=== PATIENT | female | born 1960 | race Caucasian/White ===

== ENCOUNTER 2018-10-12 08:07 | Day surgery (SDC) | payer OTHER ==
[~2018-10-12 08:07] MED LIST: Lactated Ringers 1,000 ML IV SCH
--- NOTE | 2018-10-12 08:20 | HP ---
DATE OF SURGERY: 10/12/2018 HISTORY OF PRESENT ILLNESS: The patient is a 58 year-old with a lot of gas and some blood in the stool. The patient has some internal hemorrhoids. No change in bowel movements. Family history negative for colon cancer. She is in need of screening colonoscopy and also internal hemorrhoid banding if indicating at the time. PAST MEDICAL HISTORY: Hypothyroidism. She did have prior history of tubular adenoma in the sigmoid in the past on endoscopy a few years ago. She is in need of follow up screening colonoscopy. PAST SURGICAL HISTORY: Tonsillectomy. MEDICATIONS: Thyroid pill. ALLERGIES: NKDA. FAMILY HISTORY: Heart disease. Negative for colon cancer. SOCIAL HISTORY: No smoking or alcohol abuse. REVIEW OF SYSTEMS: Fourteen systems reviewed per admission assessment. No chest pain or palpitations other systems negative or noncontributory as above and per preadmission questionnaire. PHYSICAL EXAMINATION: GENERAL: No acute distress. HEENT: Sclerae nonicteric. NECK: No JVD. CHEST: Equal excursion, nonlabored breathing. CVS: Regular rate and rhythm. ABDOMEN: Soft. No peritoneal signs. EXTREMITIES: No significant edema. NEURO: Alert, oriented, moving extremities symmetrically. No gross motor deficits noted. RECTAL: Deferred timed to endoscopy exam. IMPRESSION: History of polyps. She is in need of follow up screening colonoscopy as well as she has occasional rectal bleeding that she feels is related to internal hemorrhoid issue. She is interested if indicated at the time if possible for internal hemorrhoid banding. She was shown the risk sheet and explained the procedure in detail including bleeding or infection, risk of bowel injury or perforation possibly requiring open procedure, risk of ongoing morbidity, risk of missed or nondiagnosis or incomplete exam possibly requiring barium enema, other studies or procedures, general risk of anesthesia or sedation, risk of bowel prep regarding hemorrhoid banding, possibility the hemorrhoids may not be prominent enough to warrant banding. If they are and banding accomplished general risk of bleeding or infection, remote risk of major infection possibly requiring major procedure. There is also understanding of possibility should banding improve the situation there is a chance of progression of hemorrhoid disease that might require other treatments down the road. She understands and agrees to the planned procedure, will proceed with follow up screening colonoscopy as well as possible internal hemorrhoid banding as an outpatient.
[2018-10-12] MEDS ORDERED: Lactated Ringers 1,000 ML IV ONE ×2 (08:29→10:41)
[2018-10-12] MEDS ORDERED: DIPRIVAN 200 MG/20 ML IV ONE ×2 (10:14→10:29)
[2018-10-12 11:25] VITALS: O2SAT 100
[2018-10-12 11:52] VITALS: BP 135/77; PULSE 60
--- NOTE | 2018-10-12 15:36 | OP ---
SURGERY DATE/TIME: 10/12/2018 1016 PREOPERATIVE DIAGNOSIS: History of polyps, history of some internal and external hemorrhoids, occasional bleeding. POSTOPERATIVE DIAGNOSES: 1) Very tortuous colon, fair bowel prep. 2) Small raised lesion sigmoid colon. 3) Few diverticula. 4) Grade 2 to 3 internal and external hemorrhoids. PROCEDURES: 1) Colonoscopy to terminal ileum. 2) Retrograde Ileoscopy. 3) Hot biopsy sigmoid colon raised lesion versus early polyp. 4) Internal hemorrhoid banding x3 columns. SURGEON: Dr. Dereck Dave. CERTIFIED PERSONAL FINANCE COUNSELOR: Otilio Crespo M.D. - Medical Student III. ANESTHESIA: MAC. ESTIMATED BLOOD LOSS: Minimal. INDICATIONS: As noted above. Risks and benefits explained in detail but not limited to and consent obtained. DESCRIPTION OF PROCEDURE AND FINDINGS: The patient is taken to the operating room. MAC anesthesia introduced. After official time out and no disagreement with planned procedure, digital rectal exam did not reveal any rectal masses. She did have some internal and external hemorrhoids. Video colonoscope inserted and passed up through the tortuous sigmoid, descending, transverse and ascending colon very tortuous particularly in the left part of the colon. The scope was able to be navigated through here with a couple of staff members putting external pressure and positioned on her back. The scope was able to be passed around the ascending colon to the cecum up to the terminal ileum. Retrograde ileoscopy performed and grossly unremarkable. The scope slowly and carefully withdrawn. There were no signs of any large polyps, masses or obstructing lesions. She had a few diverticula and small raised lesion versus hyperplastic lesion versus hyperplasia in the mucosa in the sigmoid colon removed with hot biopsy forceps with brief bursts of cautery. Otherwise she had internal and external hemorrhoids. She had some increased symptoms from that and interested in hemorrhoid banding. The scope was withdrawn. Overall withdrawal time was about 10 minutes. The scope is withdrawn at this point. Remaining in the lateral position with brighter light, half-beth retractor carefully inserted. It was felt her inflamed internal hemorrhoids warranted trial of banding starting first at the left lateral. Suction sweatband drummer used to grasp the top edge of the hemorrhoid acquiring a feeding arteriole. Suction sweatband drummer easily fired with good tuft of tissue noted. This is again repeated in the right posterior position with a good tuft of tissue when the band fired the top edge internal hemorrhoid and again repeated the third time in the laying anterior position with nice tuft of tissue top edge of internal hemorrhoid. The patient tolerated the procedure well. There were no immediate complications. Findings discussed with the family out in the waiting area.
== END 2018-10-12 11:50 | disposition home or self-care (01) ==
LOC: SDC 08:07
PROVIDERS: ATTEND Surgery
DX: Z12.11 Encounter for screening for malignant neoplasm of colon (principal); K57.30 Diverticulosis of large intestine without perforation or abscess without bleeding; K64.4 Residual hemorrhoidal skin tags; K64.8 Other hemorrhoids; K63.9 Disease of intestine, unspecified; Z86.010 Personal history of colon polyps; E03.9 Hypothyroidism, unspecified
CPT/HCPCS: 88305; J2704

== ENCOUNTER 2022-08-05 09:31 | Day surgery (SDC) | payer OTHER ==
--- NOTE | 2022-08-05 08:57 | HP ---
DATE OF SURGERY: 08/05/2022 HISTORY OF PRESENT ILLNESS: The patient is a 62-year-old with history of polyps in the past. No bloody stools. No change in bowel movements. Increased aches when she has a bowel movement. No new abdominal pain. Family history negative for colon cancer. PAST MEDICAL HISTORY: Osteoarthritis. Chronic obstructive pulmonary disease. She wears corrective lenses. Hypothyroidism. PAST SURGICAL HISTORY: Tonsillectomy. Hemorrhoidectomy. Colonoscopy. MEDICATIONS: She takes some levothyroxine for hypothyroidism. ALLERGIES: NKDA. FAMILY HISTORY: Heart disease. Negative for colon cancer. SOCIAL HISTORY: No smoking. Occasional alcohol use. REVIEW OF SYSTEMS: Fourteen systems reviewed. No chest pain or palpitations. Other systems negative or noncontributory as above and per preadmission questionnaire. PHYSICAL EXAMINATION: Height 5'5". BMI 20.8. GENERAL: No acute distress. HEENT: Sclerae nonicteric. EOMI. Oropharynx mucous membranes moist. NECK: No JVD. CHEST: Equal excursion, nonlabored breathing. CVS: Regular rate and rhythm. ABDOMEN: Soft. BACK: Small lipoma. EXTREMITIES: No significant edema. NEURO: Alert, oriented, moving extremities symmetrically. RECTAL: Deferred timed to endoscopy exam. PSYCH: Appropriate mood and affect. SKIN: Dry. IMPRESSION: She is in need of follow up screening colonoscopy with history of polyps in the past. I feel patient is a candidate. Shown the risk sheet, explained the procedure in detail including but not limited to risk of bleeding or infection, risk of bowel injury or perforation, risk of missed or nondiagnosis or incomplete exam possibly requiring barium enema, other studies or procedures, general risk of anesthesia or sedation, risk of bowel prep but not limited to, consent obtained. Will proceed with follow up outpatient screening colonoscopy.
[2022-08-05] MEDS ORDERED: Lactated Ringers 1,000 ML IV SCH (10:00)
[2022-08-05] MEDS ORDERED: Lactated Ringers 1,000 ML IV ONE (10:07)
[2022-08-05] MEDS ORDERED: Versed 2 MG/2 ML Injection ONE (12:03)
[2022-08-05] MEDS ORDERED: DIPRIVAN 200 MG/20 ML IV ONE ×2 (12:03→12:13)
[2022-08-05 13:23] VITALS: BP 136/82; PULSE 64; O2SAT 95
--- NOTE | 2022-08-06 10:39 | OP ---
SURGERY DATE/TIME: 08/05/2022 1203 PREOPERATIVE DIAGNOSIS: Need for screening colonoscopy, prior history of polyps. POSTOPERATIVE DIAGNOSES: 1) ASA Class II. 2) Good bowel prep. 3) Few scattered diverticula. 4) Small polyps. PROCEDURES: 1) Colonoscopy to cecum. 2) Hot biopsy polypectomy small ascending colon polyp. 3) Hot biopsy polypectomy small transverse colon polyp. 4) Hot biopsy polypectomy small sigmoid colon polyps x2. 5) Hot biopsy polypectomy small rectal polyps x3. SURGEON: Dr. Dereck Dave. ANESTHESIA: MAC. ESTIMATED BLOOD LOSS: Minimal. INDICATIONS: As noted above. Risks and benefits explained in detail but not limited to and consent obtained. DESCRIPTION OF PROCEDURE AND FINDINGS: The patient is taken to the endoscopy room. MAC anesthesia induced. After official time out and no disagreement with planned procedure, digital rectal exam did not reveal any rectal masses. Video colonoscope inserted and passed up through the somewhat tortuous sigmoid, descending, transverse and ascending colon. With the external pressure the scope was able to be passed around to the cecum. Appendiceal orifice and valve well visualized and photo documented. Prep overall was good. There was a little bit of liquidy stool but overall good prep. The scope is carefully withdrawn over the next eleven minutes. Small polyps ascending colon, transverse colon, sigmoid colon x2 and rectum x3 small early polyps versus hyperplastic lesion removed with hot biopsy polypectomy. Good hemostasis was noted. The patient had a few scattered diverticula. No signs of any large polyps, masses or any other obstructing lesions. The scope is withdrawn. The patient tolerated the procedure well. There were no immediate complications. There was no family to discuss the findings with out in the waiting area.
== END 2022-08-05 13:25 | disposition home or self-care (01) ==
LOC: SDC 09:31
PROVIDERS: ATTEND Surgery
DX: Z12.11 Encounter for screening for malignant neoplasm of colon (principal); Z09 Encounter for follow-up examination after completed treatment for conditions other than malignant neoplasm; Z86.010 Personal history of colon polyps; K57.30 Diverticulosis of large intestine without perforation or abscess without bleeding; D12.7 Benign neoplasm of rectosigmoid junction; D12.2 Benign neoplasm of ascending colon; D12.5 Benign neoplasm of sigmoid colon; D12.3 Benign neoplasm of transverse colon
CPT/HCPCS: J2250; J2704

== ENCOUNTER 2022-11-13 20:02 | Emergency (ER) | payer OTHER ==
[2022-11-13 20:31] VITALS: BP 124/78; PULSE 75; RESP 18; TEMP 97.8; O2SAT 98
[2022-11-13] MEDS ORDERED: TORAdol 30 mg Injection IM ONE (21:08)
--- NOTE | 2022-11-13 21:09 | ERPHSYRPT ---
- History of Present Illness Time Seen by Provider: 11/13/22 20:58 Source: patient Exam Limitations: no limitations Patient Subjective Stated Complaint: pt states that she was playing with her dog when her dog tripped her Triage Nursing Assessment: pt ambulated into the er; pt is axo x4; c/o rt knee pain; no bruising, swelling, or deformity present to rt knee; strong rt pedal pulse; strong rt popiteal pulse; good cap refill to RLE; no respiratory distress present; skin PDW; vital wnl Physician History: Patient is a 62-year-old female presents to our emergency department for evaluation of pain to her right knee. Patient states she was playing with her dog when she tripped and fell. Patient now has knee pain. Injury occurred just prior to arrival. Pain described as an ache that is localized. No radiation. Pain worse with movement and palpation. Pain improved with rest. Patient voices no other complaints or concerns at this time. No BHT or LOC. No neck pain. Cervical spine cleared clinically. Portions of this note were created with voice recognition technology. There may be grammatical, spelling, punctuation or sound alike errors Method of Injury: fell Occurred: just prior to arrival Quality: constant Severity of Pain-Max: moderate Severity of Pain-Current: mild Lower Extremities Pain: knee: right Modifying Factors: Improves With: movement Associated Symptoms: none Allergies/Adverse Reactions: No Known Drug Allergies Allergy (Verified 11/13/22 20:19) Home Medications: Levothyroxine Sodium 88 Mcg [Synthroid 88 Mcg] 100 mcg PO DAILY 06/19/15 [History] Hx Tetanus, Diphtheria Vaccination/Date Given: Yes Hx Influenza Vaccination/Date Given: No Hx Pneumococcal Vaccination/Date Given: No Immunizations Up to Date: No Travel Risk - International Travel Have you traveled outside of the country in past 3 weeks: No - Coronavirus Screening Are you exhibiting any of the following symptoms?: No Close contact with a COVID-19 positive Pt in past 14-21 Days: No - Vaccine Status Have you recieved a Covid-19 vaccination: Yes Sole Rounding Machine Operator: Kwanji - Review of Systems Constitutional: No Symptoms, No Fever, No Chills Eyes: No Symptoms Ears, Nose, & Throat: No Symptoms Respiratory: No Symptoms, No Cough, No Dyspnea Cardiac: No Symptoms, No Chest Pain, No Edema, No Syncope Abdominal/Gastrointestinal: No Symptoms, No Abdominal Pain, No Nausea, No Vomiting, No Diarrhea Genitourinary Symptoms: No Symptoms, No Dysuria Musculoskeletal: No Symptoms, No Back Pain, No Neck Pain Skin: No Symptoms, No Rash Neurological: No Symptoms, No Dizziness, No Focal Weakness, No Sensory Changes Psychological: No Symptoms Endocrine: No Symptoms Hematologic/Lymphatic: No Symptoms Immunological/Allergic: No Symptoms All Other Systems: Reviewed and Negative - Past Medical History Pertinent Past Medical History: Yes Neurological History: No Pertinent History ENT History: No Pertinent History Cardiac History: No Pertinent History Respiratory History: No Pertinent History Endocrine Medical History: Hypothyroidism Musculoskeletal History: No Pertinent History GI Medical History: No Pertinent History History: No Pertinent History Psycho-Social History: No Pertinent History Female Reproductive Disorders: No Pertinent History Other Medical History: Hypothyroidism - Past Surgical History Past Surgical History: Yes Neuro Surgical History: No Pertinent History Cardiac: No Pertinent History Respiratory: No Pertinent History Gastrointestinal: Hemorrhoidectomy Genitourinary: No Pertinent History Musculoskeletal: No Pertinent History Female Surgical History: No Pertinent History Other Surgical History: tonsils out - Social History Smoking Status: Former smoker Exposure to second hand smoke: Yes Drug Use: none Patient Lives Alone: No - Nursing Vital Signs Nursing Vital Signs: Initial Vital Signs Temperature 97.8 F 11/13/22 20:21 Pulse Rate 75 11/13/22 20:21 Respiratory Rate 18 11/13/22 20:21 Blood Pressure 124/78 11/13/22 20:21 O2 Sat by Pulse Oximetry 98 11/13/22 20:21 Pain Scale Pain Intensity 3 - Physical Exam General Appearance: alert Neck Exam: full range of motion Cardiovascular/Respiratory Exam: normal breath sounds, regular rate/rhythm, no respiratory distress Gastrointestinal/Abdominal Exam: non-tender Back Exam: normal inspection, No vertebral tenderness Hips Exam: bilateral: non-tender, normal inspection, normal range of motion, no evidence of injury Legs Exam: bilateral leg: non-tender, normal inspection, normal range of motion, no evidence of injury Knees Exam: right knee: other (Tenderness to palpation mostly at the posterior aspect of her right knee. Overlying soft tissue intact. Knee extensor mechanism intact. All ligament are stable to varus valgus stress/negative anterior posterior drawer test), left knee: non-tender, normal inspection, normal range of motion, no evidence of injury Ankle Exam: bilateral ankle: non-tender, normal inspection, normal range of motion, no evidence of injury Foot Exam: bilateral foot: non-tender, normal inspection, normal range of motion, no evidence of injury Neuro/Tendon Exam: normal sensation, normal motor functions Mental Status Exam: alert, oriented x 3, cooperative Skin Exam: normal color, warm, dry SpO2 Interpretation: normal SpO2: 98 O2 Delivery: Room Air - Course Nursing assessment & vital signs reviewed: Yes - Radiology Exams Knee X-ray Interpretation: Interpreted by me (No fracture dislocations. No soft tissue abnormalities) Ordered Tests: Active Orders 24 hr Category Date Time Status KNEE (3 VIEWS) Stat Exams 11/13/22 20:20 Taken - Progress Progress: improved Progress Note: Patient is a 62-year-old female presents to our ED for evaluation of right knee pain. Patient fell while playing with her dog. Patient fell backwards and experienced pain to the posterior aspect of her right knee. Physical exam reveals tenderness to the posterior aspect of the right knee. Otherwise negative exam. All knee ligaments are stable. X-ray negative for fracture dislocation. Patient received IM Toradol. A prescription for Toradol was forwarded to patient's pharmacy. Veto wrap applied. Bilateral x-ray crutches provided. Referral to orthopedic clinic provided as well. Patient at bedside. They voiced no other complaints or concerns at this time. Portions of this note were created with voice recognition technology. There may be grammatical, spelling, punctuation or sound alike errors Complexity problem addressed is low acute uncomplicated COPA (number of complexity of problem addressed) Minimal, Straight forward, one self limited or minor problem Low. Acute uncomplicated stable +/- admission, Any acute or chronic illness, 2 or more self-limited or minor problems. Moderate. Acute, complicated or with systemic illness. Chronic illness with exacerbation, New diagnosis with uncertain prognosis. 2 or more chronic stable illnesses. High. Any severe exacerbation or threat to bodily function, Any treatment side effects Complex of data reviewed and analyzed is moderate. Dr. Meraz independently reviewed x-ray of the right knee. Clinical correlation made between findings and history and physical examination. No fracture dislocations observed. Risk complication and a risk morbidity/mortality of patient management is moderate. Patient received IM Toradol, bilateral axillary crutches, Veto wrap, prescription for Toradol forwarded to patient's pharmacy. Patient also received a referral to the orthopedic clinic. Vital stable. Time spent to discharge patient is approximately 15 minutes. Diagnosis is knee pain, knee strain as patient appears to have strained the musculature that crossed the posterior aspect of the involved knee.. Plan of care established for shared decision making. No social determinants of health present to impede follow-up. Portions of this note were created with voice recognition technology. There may be grammatical, spelling, punctuation or sound alike errors 11/13/22 21:15 11/13/22 21:18 Counseled pt/family regarding: diagnosis, need for follow-up, rad results - Departure Departure Disposition: Home Clinical Impression: Fall, Knee sprain, Knee strain Condition: Stable Critical Care Time: No Referrals: TED RODRÍGUEZ FNP [Primary Care Provider] - Follow up/PCP as directed Additional Instructions: Discharge/Care Plan ZAK ELIZABETH was seen on 11/13/22 in the Emergency Room. The patient was counseled regarding Diagnosis,Lab results, Imaging studies, need for follow up and when to return to the Emergency Room. Prescriptions given: Discharge Note I have spoken with the patient and/or caregivers. I have explained the patient's condition, diagnosis and treatment plan based on the information available to me at this time. I have answered the patient's and/or caregiver's questions and addressed any concerns. The patient and/or caregivers have as good understanding of the patient's diagnosis, condition and treatment plan as can be expected at this point. The vital signs have been stable. The patient's condition is stable and appropriate for discharge from the emergency department. The patient will pursue further outpatient evaluation with the primary care physician or other designated or consulting physician as outlined in the discharge instructions. The patient and/or caregivers are agreeable to this plan of care and follow-up instructions have been explained in detail. The patient and/or caregivers have received these instruction. The patient/and or caregivers are aware that any significant change in condition or worsening of symptoms should prompt an immediate return to this or the closest emergency department or call 911. Prescriptions: Ketorolac Trometh 10 mg Tab [TORAdol 10 MG TABLET] 10 mg PO TID 5 Days #15 tablet Outpatient Orders: Ortho Referral Time Frame: 1 Day, Facility: [facility]. Hosp, Location: ORTHO CLINIC
[2022-11-13] MEDS ORDERED: TORAdol 30 mg Injection ONE (21:14)
--- NOTE | 2022-11-14 08:40 | XRAY ---
Indication: Pain following fall. Twisting knee. Comparison: None 3 view right knee demonstrates tiny nonspecific effusion. No other bony, articular, or soft tissue abnormalities.
== END 2022-11-13 21:32 | disposition home or self-care (01) ==
LOC: ED 20:02
DX: S83.91XA Sprain of unspecified site of right knee, initial encounter (principal); W01.0XXA Fall on same level from slipping, tripping and stumbling without subsequent striking against object, initial encounter; Z79.899 Other long term (current) drug therapy
CPT/HCPCS: 73562; 96372; 99283; J1885

== ENCOUNTER 2024-03-23 16:39 | Emergency (ER) | payer MEDICARE, OTHER ==
[2024-03-23 18:45] VITALS: TEMP 97.8
--- NOTE | 2024-03-23 20:01 | ERPHSYRPT ---
- History of Present Illness Time Seen by Provider: 03/23/24 19:35 Historian: patient Exam Limitations: no limitations Patient Subjective Stated Complaint: C/O intermittent back pain inbetween shoulder bladers since Friday. Denies N/V. Denies injuries or falls. Triage Nursing Assessment: Patient ambulated back to ER without difficulties. She is alert and oriented. No SOB. Skin tone normal. Physician History: 64-year-old female presents to our ED for evaluation of pain in her upper back. Patient states symptoms started on Friday. Patient followed up with her primary care doctor today. Patient was advised to come to our ED for cardiac workup. Patient has a history of hypercholesterolemia. She states she is otherwise healthy. She is a non-smoker. No trauma no fever no cough. Symptoms are constant. Symptoms are mild to moderate in intensity. No specific worsening or improving factors. Patient otherwise feels well. She voices no other complaints or concerns at this time. Portions of this note were created with voice recognition technology. There may be grammatical, spelling, punctuation or sound alike errors Timing/Duration: day(s) (4 days) Activities at Onset: none Quality: aching Location: back Chest Pain Radiation: no radiation Severity of Pain-Max: moderate Severity of Pain-Current: mild Modifying Factors: Improves With: nothing Associated Symptoms: denies symptoms Nitro Today/Relief: no nitro taken today Aspirin Treatment Today: no aspirin today Allergies/Adverse Reactions: No Known Drug Allergies Allergy (Verified 03/23/24 18:35) Home Medications: Levothyroxine Sodium 112 Mcg [Synthroid 112 Mcg] 112 mcg PO DAILY 03/23/24 [History] Hx Tetanus, Diphtheria Vaccination/Date Given: Yes Hx Influenza Vaccination/Date Given: No Hx Pneumococcal Vaccination/Date Given: No Immunizations Up to Date: Yes Travel Risk - International Travel Have you traveled outside of the country in past 3 weeks: No - Emerging Infectious Disease Are you exhibiting symptoms associated with any current EIDs: No - Review of Systems Constitutional: No Symptoms, No Fever, No Chills Eyes: No Symptoms Ears, Nose, & Throat: No Symptoms Respiratory: No Symptoms, No Cough, No Dyspnea Cardiac: No Symptoms, No Chest Pain, No Edema, No Syncope Abdominal/Gastrointestinal: No Symptoms, No Abdominal Pain, No Nausea, No Vomiting, No Diarrhea Genitourinary Symptoms: No Symptoms, No Dysuria Musculoskeletal: No Symptoms, No Back Pain, No Neck Pain Skin: No Symptoms, No Rash Neurological: No Symptoms, No Dizziness, No Focal Weakness, No Sensory Changes Psychological: No Symptoms Endocrine: No Symptoms Hematologic/Lymphatic: No Symptoms Immunological/Allergic: No Symptoms All Other Systems: Reviewed and Negative - Past Medical History Pertinent Past Medical History: Yes Neurological History: No Pertinent History ENT History: No Pertinent History Cardiac History: No Pertinent History Respiratory History: No Pertinent History Endocrine Medical History: Hypothyroidism Musculoskeletal History: No Pertinent History GI Medical History: No Pertinent History History: No Pertinent History Psycho-Social History: No Pertinent History Female Reproductive Disorders: No Pertinent History Other Medical History: Hypothyroidism - Past Surgical History Past Surgical History: Yes Neuro Surgical History: No Pertinent History Cardiac: No Pertinent History Respiratory: No Pertinent History Gastrointestinal: Hemorrhoidectomy Genitourinary: No Pertinent History Musculoskeletal: No Pertinent History Female Surgical History: No Pertinent History Other Surgical History: tonsils out - Social History Smoking Status: Former smoker Exposure to second hand smoke: Yes Drug Use: none Patient Lives Alone: No - Social Determinants of Health Will the patient participate in the screening: Declined to provide - Nursing Vital Signs Nursing Vital Signs: Initial Vital Signs Temperature 97.8 F 03/23/24 18:38 Pulse Rate 64 03/23/24 18:38 Respiratory Rate 18 03/23/24 18:38 Blood Pressure 176/79 03/23/24 18:38 O2 Sat by Pulse Oximetry 99 03/23/24 18:38 Pain Scale Pain Intensity 0 - Physical Exam General Appearance: no apparent distress, alert Eye Exam: PERRL/EOMI, eyes nml inspection Ears, Nose, Throat Exam: normal ENT inspection, moist mucous membranes Neck Exam: normal inspection, full range of motion Respiratory Exam: normal breath sounds, lungs clear, airway intact, No respiratory distress Cardiovascular Exam: regular rate/rhythm, normal heart sounds, normal peripheral pulses Gastrointestinal/Abdomen Exam: soft, No tenderness, No mass Back Exam: normal inspection, No CVA tenderness, No vertebral tenderness Extremity Exam: normal inspection, normal range of motion Neurologic Exam: alert, oriented x 3, cooperative, normal mood/affect, sensation nml, No motor deficits Skin Exam: normal color, warm, dry Lymphatic Exam: No adenopathy SpO2 Interpretation: normal SpO2: 97 O2 Delivery: Room Air - Course Nursing assessment & vital signs reviewed: Yes EKG Interpreted by Me: RATE (72), Sinus Rhythm, NORMAL AXIS, NORMAL INTERVALS, NORMAL QRS Ordered Tests: Active Orders 24 hr Category Date Time Status AMA [Release AMA] OM.NOW Care 03/23/24 22:27 Completed Field Sales Executive STAT Care 03/23/24 19:54 Completed EKG-ER Only STAT Care 03/23/24 19:54 Completed IV Insertion STAT Care 03/23/24 19:51 Completed Pulse Oximetry (ED) STAT Care 03/23/24 19:54 Completed CBC W DIFF Stat Lab 03/23/24 20:07 Completed CMP Stat Lab 03/23/24 20:07 Completed CULTURE,URINE Stat Lab 03/23/24 20:30 Received D-DIMER QUANTITATIVE Stat Lab 03/23/24 20:07 Completed NT PRO BNPII Stat Lab 03/23/24 20:07 Completed TROPONIN Q4H Lab 03/23/24 20:07 Completed TROPONIN Q4H Lab 03/23/24 22:30 Ordered UA W/RFX UR CULTURE Stat Lab 03/23/24 20:30 Completed Medication Summary Discontinued Medications Generic Name Dose Route Start Last Admin Trade Name Freq PRN Reason Stop Dose Admin Sodium Chloride 1,000 mls @ 250 mls/hr 03/23/24 20:00 03/23/24 20:31 Sodium Chloride 0.9% 1000 Ml IV 04/22/24 19:59 250 mls/hr .Q4H WILLIAM Administration Morphine Sulfate 4 mg 03/23/24 19:51 03/23/24 20:30 Morphine Sulfate 4 Mg/Ml Injection IV 03/23/24 19:52 4 mg STAT ONE Administration Nitrofurantoin Macrocrystals 100 mg 03/23/24 22:14 03/23/24 22:17 Nitrofurantoin Macro 100 Mg Capsule PO 03/23/24 22:15 100 mg STAT ONE Administration Nitrofurantoin Macrocrystals Confirm 03/23/24 22:17 Nitrofurantoin Macro 100 Mg Capsule Administered 03/23/24 22:18 Dose 100 mg .ROUTE .STK-MED ONE Ondansetron HCl 4 mg 03/23/24 19:51 03/23/24 20:32 Ondansetron Hcl 4 Mg/2 Ml Vial IV 03/23/24 19:52 4 mg STAT ONE Administration Lab/Rad Data: Laboratory Result Diagrams 03/23/24 20:07 03/23/24 20:07 Laboratory Results 03/23/24 03/23/24 03/23/24 Range/Units 20:30 20:07 20:07 WBC (3.98-10.04) x10^3/uL RBC (3.93-5.22) x10^6/uL Hgb (11.2-15.7) g/dL Hct (34.1-44.9) % MCV (79.4-94.8) fL MCH (25.6-32.2) pg MCHC (32.2-35.5) g/dL RDW (11.7-14.4) % Plt Count (182-369) x10^3/uL MPV (9.4-12.3) fL Gran % (34.0-71.1) % Immature Gran % (Auto) (0.001-0.429) % Nucleat RBC Rel Count (0.00-0.2) % Eos # (Auto) (0.04-0.36) x10^3/uL Immature Gran # (Auto) (0.001-0.031) x10^3u/L Absolute Lymphs (auto) (1.18-3.74) x10^3/uL Absolute Monos (auto) (0.24-0.86) x10^3/uL Absolute Nucleated RBC (0.00-0.012) x10^3u/L Lymphocytes % (19.3-51.7) % Monocytes % (4.7-12.5) % Eosinophils % (0.7-5.8) % Basophils % (0.1-1.2) % Absolute Granulocytes (1.56-6.13) x10^3/uL Basophils # (0.01-0.08) x10^3/uL D-Dimer < 0.19 (0.0-0.50) mg/L Sodium (135-145) mmol/L Potassium (3.5-5.1) mmol/L Chloride (98-107) mmol/L Carbon Dioxide (22-30) mmol/L Anion Gap (5-15) MEQ/L BUN (7-17) mg/dL Creatinine (0.52-1.04) mg/dL Estimated GFR ML/MIN Glucose (74-106) mg/dL Calcium (8.4-10.2) mg/dL Total Bilirubin (0.2-1.3) mg/dL AST (14-36) U/L ALT (0-35) U/L Alkaline Phosphatase (38-126) U/L Troponin I < 0.012 (0.000-0.033) ng/mL NT-Pro-B Natriuret Pep 37.8 (<300) pg/mL Serum Total Protein (6.3-8.2) g/dL Albumin (3.5-5.0) g/dL Urine Color Yellow (Yellow) Urine Appearance Clear (Clear) Urine pH 7.0 (4.6-8.0) Ur Specific [place] 1.010 (1.005-1.030) Urine Protein Negative (Negative) Urine Glucose (UA) Negative (Negative) mg/dL Urine Ketones Trace A (Negative) Urine Blood Trace (Negative) Urine Nitrite Negative (Negative) Urine Bilirubin Negative (Negative) Urine Urobilinogen 0.2 (0.2) mg/dL Ur Leukocyte Esterase Moderate A (Negative) U Hyaline Cast (Auto) NONE SEEN (0-2) /LPF Urine Microscopic RBC 3-5 (0-5) /HPF Urine Microscopic WBC 21-50 A (0-5) /HPF Ur Epithelial Cells None Seen (None Seen) /HPF Urine Bacteria None Seen (None Seen) /HPF Urine Culture Reflexed YES (NO) 03/23/24 03/23/24 Range/Units 20:07 20:07 WBC 7.5 (3.98-10.04) x10^3/uL RBC 3.88 L (3.93-5.22) x10^6/uL Hgb 12.1 (11.2-15.7) g/dL Hct 36.8 (34.1-44.9) % MCV 94.8 (79.4-94.8) fL MCH 31.2 (25.6-32.2) pg MCHC 32.9 (32.2-35.5) g/dL RDW 12.8 (11.7-14.4) % Plt Count 272 (182-369) x10^3/uL MPV 10.4 (9.4-12.3) fL Gran % 60.0 (34.0-71.1) % Immature Gran % (Auto) 0.3 (0.001-0.429) % Nucleat RBC Rel Count 0.0 (0.00-0.2) % Eos # (Auto) 0.13 (0.04-0.36) x10^3/uL Immature Gran # (Auto) 0.02 (0.001-0.031) x10^3u/L Absolute Lymphs (auto) 2.16 (1.18-3.74) x10^3/uL Absolute Monos (auto) 0.62 (0.24-0.86) x10^3/uL Absolute Nucleated RBC 0.00 (0.00-0.012) x10^3u/L Lymphocytes % 28.7 (19.3-51.7) % Monocytes % 8.2 (4.7-12.5) % Eosinophils % 1.7 (0.7-5.8) % Basophils % 1.1 (0.1-1.2) % Absolute Granulocytes 4.52 (1.56-6.13) x10^3/uL Basophils # 0.08 (0.01-0.08) x10^3/uL D-Dimer (0.0-0.50) mg/L Sodium 138 (135-145) mmol/L Potassium 3.8 (3.5-5.1) mmol/L Chloride 104 (98-107) mmol/L Carbon Dioxide 25 (22-30) mmol/L Anion Gap 13.0 (5-15) MEQ/L BUN 15 (7-17) mg/dL Creatinine 0.80 (0.52-1.04) mg/dL Estimated GFR 81.7 ML/MIN Glucose 102 (74-106) mg/dL Calcium 9.9 (8.4-10.2) mg/dL Total Bilirubin 0.30 (0.2-1.3) mg/dL AST 32 (14-36) U/L ALT 33 (0-35) U/L Alkaline Phosphatase 63 (38-126) U/L Troponin I (0.000-0.033) ng/mL NT-Pro-B Natriuret Pep (<300) pg/mL Serum Total Protein 7.0 (6.3-8.2) g/dL Albumin 4.7 (3.5-5.0) g/dL Urine Color (Yellow) Urine Appearance (Clear) Urine pH (4.6-8.0) Ur Specific [place] (1.005-1.030) Urine Protein (Negative) Urine Glucose (UA) (Negative) mg/dL Urine Ketones (Negative) Urine Blood (Negative) Urine Nitrite (Negative) Urine Bilirubin (Negative) Urine Urobilinogen (0.2) mg/dL Ur Leukocyte Esterase (Negative) U Hyaline Cast (Auto) (0-2) /LPF Urine Microscopic RBC (0-5) /HPF Urine Microscopic WBC (0-5) /HPF Ur Epithelial Cells (None Seen) /HPF Urine Bacteria (None Seen) /HPF Urine Culture Reflexed (NO) - Progress Progress: improved Air Movement: good Progress Note: 64-year-old female presents to our ED as a referral from her primary care doctor for evaluation of acute coronary syndrome. Patient has been having back pain. Physical exam essentially nonremarkable. Preliminary workup nonremarkable. D- dimer negative. Initial troponin negative. Chest x-ray ordered. Second Trope pending. UA significant for urinary tract infection. Patient received a dose of Macrobid in our ED. a prescription for Macrobid forwarded to patient's p harmacy. Patient could not stay for a second cardiac troponin. Patient left AMA before second troponin could be obtained and before chest x-ray could be completed.. Patient is of sound mind. Patient is appropriate to make informed and independent medical decisions. Patient understands that leaving AGAINST MEDICAL ADVICE can result in delayed diagnosis, increased risk of morbidity, mortality, short and long-term disability including . In spite of these risks, patient has decided to leave AGAINST MEDICAL ADVICE. Patient understands that she may return to our ED at any point if she reconsiders. Patient agrees to follow-up with her primary care doctor within 48 hours for reevaluation. Patient voices no other complaints or concerns at this time. We will release patient AGAINST MEDICAL ADVICE per their request. Complexity of problem addressed is moderate acute complicated no critical care time. Complexity of data reviewed and analyzed is moderate. Test ordered test reviewed results analyzed and correlated clinically with history and physical exam. Risk of complication and or risk of morbidity/mortality of patient management is moderate. A prescription for Macrobid forwarded to patient's pharmacy. Vital stable. Time spent to discharge patient is approximately 20 minutes. No social determinants of health present to impede follow-up. Portions of this note were created with voice recognition technology. There may be grammatical, spelling, punctuation or sound alike errors 03/23/24 22:29 03/23/24 22:41 Blood Culture(s) Obtained: No Antibiotics given: No Counseled pt/family regarding: lab results, diagnosis, need for follow-up - Departure Departure Disposition: Home Clinical Impression: UTI (urinary tract infection), Back pain Condition: Stable Critical Care Time: No Referrals: TED RODRÍGUEZ FNP [Primary Care Provider] - Follow up/PCP as directed Instructions: Low Back Pain (DC), Urinary tract infection - Discharge instructions Additional Instructions: Discharge/Care Plan CLARAZAK SAGE was seen on 03/23/24 in the Emergency Room. The patient was counseled regarding Diagnosis,Lab results, Imaging studies, need for follow up and when to return to the Emergency Room. Prescriptions given: Discharge Note I have spoken with the patient and/or caregivers. I have explained the patient's condition, diagnosis and treatment plan based on the information available to me at this time. I have answered the patient's and/or caregiver's questions and ad dressed any concerns. The patient and/or caregivers have as good understanding of the patient's diagnosis, condition and treatment plan as can be expected at this point. The vital signs have been stable. The patient's condition is stable and appropriate for discharge from the emergency department. The patient will pursue further outpatient evaluation with the primary care physician or other designated or consulting physician as outlined in the discharge instructions. The patient and/or caregivers are agreeable to this plan of care and follow-up instructions have been explained in detail. The patient and/or caregivers have received these instruction. The patient/and or caregivers are aware that any significant change in condition or worsening of symptoms should prompt an immediate return to this or the closest emergency department or call 911. Prescriptions: Nitrofurantoin Macro 100 mg [Macrobid 100MG Capsule] 100 mg PO BID 7 Days #14 cap
[2024-03-23 20:10] LABS: Absolute Neutrophil Ct (ANC) 4.52 x10^3/uL (1.56-6.13); BASOPHIL % 1.1 % (0.1-1.2); Basophil (Absolute #) 0.08 x10^3/uL (0.01-0.08); Eosinophil % 1.7 % (0.7-5.8); Eosinophil (Absolute #) 0.13 x10^3/uL (0.04-0.36); Hematocrit 36.8 % (34.1-44.9); Hemoglobin 12.1 g/dL (11.2-15.7); IMMATURE GRAN # 0.02 x10^3u/L (0.001-0.031); IMMATURE GRAN % 0.3 % (0.001-0.429); Lymphocyte (Absolute #) 2.16 x10^3/uL (1.18-3.74); Lymphocytes % 28.7 % (19.3-51.7); Mean Cell Volume 94.8 fL (79.4-94.8); Mean Corpuscular Hemoglobin 31.2 pg (25.6-32.2); Mean Corpuscular Hgb Concent. 32.9 g/dL (32.2-35.5); Mean Platelet Volume 10.4 fL (9.4-12.3); Monocyte (Absolute #) 0.62 x10^3/uL (0.24-0.86); Monocytes % 8.2 % (4.7-12.5); Platelet Count 272 x10^3/uL (182-369); Red Blood Count 3.88 x10^6/uL (3.93-5.22); Red Cell Distribution Width 12.8 % (11.7-14.4); White Blood Count 7.5 x10^3/uL (3.98-10.04)
[2024-03-23] MEDS: MORPHINE SULFATE 4 MG INJ IV ONE (20:20)
[2024-03-23] MEDS: Zofran 4 MG/2 ML VIAL IV ONE (20:21)
[2024-03-23 20:28] LABS: ALBUMIN 4.7 g/dL (3.5-5.0); BILIRUBIN,TOTAL 0.3 mg/dL (0.2-1.3); Calcium 9.9 mg/dL (8.4-10.2); Creatinine 1 0.8 mg/dL (0.52-1.04); EST GLOMERULAR FILTRATION RATE 81.7 ML/MIN; Potassium 3.8 mmol/L (3.5-5.1)
[2024-03-23] MEDS: Sodium Chloride 0.9% 1000 ML 1,000 ML IV SCH (20:31)
[2024-03-23 20:40] LABS: NT PRO BNPII 37.8 pg/mL (<300); TROPONIN < 0.012 ng/mL (0.000-0.033)
[2024-03-23 20:45] LABS: Appearance Clear (Clear); Bacteria None Seen /HPF (None Seen); Bilirubin Negative (Negative); Blood Trace (Negative); Epithelial Cells None Seen /HPF (None Seen); Glucose, Urine Negative (Negative); Hyaline Casts NONE SEEN /LPF (0-2); Ketones Trace (Negative); Leukocyte Esterase Moderate (Negative); Nitrite Negative (Negative); Protein,Urine Dip Negative (Negative); Urobilinogen 0.2 mg/dL (0.2); WBC 21-50 /HPF (0-5)
[2024-03-23 21:02] VITALS: O2SAT 97
[2024-03-23 22:15] VITALS: BP 169/81; PULSE 102; RESP 19
[2024-03-23] MEDS ORDERED: Macrobid 100MG Capsule ONE (22:17)
[2024-03-23] MEDS: Macrobid 100MG Capsule PO ONE (22:17)
== END 2024-03-23 22:33 | disposition left against medical advice (07) ==
LOC: ED 16:39
DX: N39.0 Urinary tract infection, site not specified (principal); M54.6 Pain in thoracic spine; E78.00 Pure hypercholesterolemia, unspecified; Z79.899 Other long term (current) drug therapy
CPT/HCPCS: 36415; 80053; 81001; 83880; 84484; 85025; 85379; 87086; 93005; 94760; 99284; 99285; J2270; J2405; A9270-GY